=== PATIENT | female | born 1955 | race Caucasian/White ===

== ENCOUNTER → 2017-01-26 | Outpatient (CLI) | payer OTHER | LOC: BMCIMAGING 14:22 | PROVIDERS: ATTEND Family Medicine | DX: Z12.31 Encounter for screening mammogram for malignant neoplasm of breast (principal); Z13.820 Encounter for screening for osteoporosis; M81.0 Age-related osteoporosis without current pathological fracture | CPT/HCPCS: G0202 ==

== ENCOUNTER → 2018-03-02 | Outpatient (CLI) | payer OTHER | LOC: BMCIMAGING 08:56 | PROVIDERS: ATTEND Family Medicine | DX: Z12.31 Encounter for screening mammogram for malignant neoplasm of breast (principal) ==